=== PATIENT | male | born 1965 | race Caucasian/White ===

== ENCOUNTER 2016-12-08 08:15 | Emergency (ER) | payer OTHER, SELFPAY ==
[2016-12-08] MEDS ORDERED: Bupivacaine 0.5% 10 ML VIAL ONE (08:38)
== END 2016-12-08 09:02 | disposition home or self-care (01) ==
LOC: NAV ERS 08:15
DX: M54.12 Radiculopathy, cervical region (principal); F32.9 Major depressive disorder, single episode, unspecified; F17.210 Nicotine dependence, cigarettes, uncomplicated
CPT/HCPCS: 20552; J3490

== ENCOUNTER 2017-04-09 02:57 | Emergency (ER) | payer SELFPAY ==
[2017-04-09] MEDS ORDERED: predniSONE 20 MG TAB ONE (03:26)
[2017-04-09] MEDS ORDERED: diphenhydrAMINE HCl 25 MG CAP ONE (03:34)
== END 2017-04-09 03:35 | disposition home or self-care (01) ==
LOC: NAV ERS 02:57
DX: L25.9 Unspecified contact dermatitis, unspecified cause (principal); K57.92 Diverticulitis of intestine, part unspecified, without perforation or abscess without bleeding; F32.9 Major depressive disorder, single episode, unspecified
CPT/HCPCS: 99282; J7506

== ENCOUNTER 2019-01-22 14:45 | Emergency (ER) | payer SELFPAY | END 2019-01-22 15:03 | disposition home or self-care (01) | LOC: NAV ERS 14:45 | DX: L03.113 Cellulitis of right upper limb (principal); F32.9 Major depressive disorder, single episode, unspecified | CPT/HCPCS: 99282 ==